=== PATIENT | female | born 1975 | race African-American/Black ===

== ENCOUNTER 2021-02-07 23:28 | Emergency (ER) | payer BC ==
[~2021-02-07] VITALS: Ht 157.5 cm; Wt 82.1 kg
[2021-02-07] MEDS ORDERED: EXCEDRIN MIGRA1 EAC1 PO (23:40)
[2021-02-08 00:01] LABS: URINE BILIRUBIN NEGATIVE (Negative); URINE BLOOD TRACE (Negative); URINE CLARITY SL CLOUDY; URINE COLOR YELLOW; URINE GLUCOSE-RANDOM* NEGATIVE (Negative); URINE KETONES NEGATIVE (Negative); URINE LEUKOCYTES-REFLEX NEGATIVE (Negative); URINE NITRITE-REFLEX NEGATIVE (Negative); URINE PROTEIN (DIPSTICK) NEGATIVE (Negative); URINE SPECIFIC GRAVITY 1.025 (1.005-1.035)
[2021-02-08 00:25] LABS: CREATININE 0.9 mg/dL (0.6-1.0); POTASSIUM 3.7 mmol/L (3.5-5.1)
[2021-02-08 00:31] LABS: ALBUMIN 3.5 g/dL (3.4-5.0); TOTAL BILIRUBIN 0.6 mg/dL (0.2-1.0); TOTAL PROTEIN 7.4 g/dL (6.4-8.2)
[2021-02-08] MEDS ORDERED: CEPHALEXIN500 MG PO (04:29)
[2021-02-08] MEDS ORDERED: HYDROCODON-ACE1 EA11 PO ×2 (04:29→04:46)
[2021-02-08] MEDS ORDERED: ZOFRAN ODT4 MG PO (04:29)
[2021-02-08 04:51] VITALS: BP 119/65
[2021-02-11] MEDS ORDERED: HYDROCODON-ACE1 EAC7 PO (14:55)
== END 2021-02-08 05:00 | disposition home or self-care (01) ==
LOC: ER 23:28
PROVIDERS: Emergency Medicine
DX: K81.9 Cholecystitis, unspecified (principal); Z79.82 Long term (current) use of aspirin